=== PATIENT | female | born 1955 | race African-American/Black ===

== ENCOUNTER 2016-11-27 17:56 | Emergency (ER) | payer OTHER ==
[~2016-11-27] VITALS: Ht 160 cm; Wt 113.4 kg
--- NOTE | ~2016-11-27 | EKG ---
[place] [address] [facility] [place] [address] ELECTROCARDIOGRAM REPORT Name: SRIDEVI MENDOZA Room #: DEP [facility]#: [id number] Admission: 11/27/16 Attend Phys: Discharge: 11/27/16 Date of : 57 Report #: [id number] THIS REPORT FOR: //name// [facility] ED Test Date: 2016-11-27 Test Time: 18:03:46 Pat Name: SRIDEVI MENDOZA Department: Room: Gender: F [employer]: Vera ZAZUETA : 1955 Requested By: Ryan Naranjo Order Number: [id number] MD: Matias Sebastian Measurements Intervals Mcdonald Rate: 147 P: MS: QRS: -5 QRSD: 83 T: 135 QT: 293 QTc: 459 Interpretive Statements Atrial fibrillation Abnormal R-wave progression, late transition LVH with secondary repolarization abnormality Compared to ECG 05/01/2013 06:54:39 atrial fibrillation has replaced sinus bradycardia Electronically Signed On 11-28-2016 8:12:49 CDT by Matias Sebastian [email or web address] <ELECTRONICALLY SIGNED> By: Matias Sebastian MD, [facility] 11/28/16811 180 180 Matias Sebastian MD, [facility] /EPI
[~2016-11-27 17:56] MED LIST: BENICAR40 MG PO; EQL FLAXSEED O1 EACH PO; FUROSEMIDE 20 M20 M1 PO; HEALTHY HEART1 EAC1 PO; LOSARTAN-HCTZ1 EACH PO; MULTIVITAMINS1 EAC7 PO; NITROFURANTOIN100 MG PO; PROBIOTIC1 EAC1 PO; TOPROL XL50 MG PO; VITAMIN B COMP1 EAC7 PO; VITAMIN D1000 UNI2 PO; VITAMINC500 PO
[2016-11-27 18:34] LABS: ABSOLUTE NEUTROPHILS 3.5 thou/uL (1.4-8.2); BASOPHILS 1.2 % (0.0-2.0); EOSINOPHILS 0.9 % (0.0-3.0); HEMOGLOBIN 13.7 gm/dL (12.0-15.0); LYMPHOCYTES 40.1 % (24.0-44.0); MCHC 33.3 g/dL (28.0-37.0); MCV 87.1 fL (80.0-100.0); MONOCYTES 7.1 % (1.0-8.0); PLATELET COUNT 232 thou/uL (150-400); POLYS 50.7 % (36.0-66.0); RDW 14.5 % (10.5-14.5); WBC 6.8 thou/uL (4.0-11.0)
[2016-11-27 18:43] LABS: MANUAL DIFF NO
[2016-11-27 18:47] LABS: ANION GAP 5 mmol/L (7-16); BUN 16 mg/dL (7-18); CALCIUM 9.6 mg/dL (8.5-10.1); CHLORIDE 103 mmol/L (98-107); CO2 28 mmol/L (21-32); CREATININE 0.9 mg/dL (0.6-1.0); GLUCOSE 132 mg/dL (74-106); POTASSIUM 3.9 mmol/L (3.5-5.1); SODIUM 136 mmol/L (136-145)
[2016-11-27 18:55] LABS: TROPONIN-I < 0.04 ng/mL (<0.04-0.07)
[2016-11-27] MEDS ORDERED: LOPRESSOR25 PO (20:20)
== END 2016-11-27 20:54 | disposition home or self-care (01) ==
LOC: ER 17:56
PROVIDERS: Emergency Medicine
DX: I48.0 Paroxysmal atrial fibrillation (principal); I10 Essential (primary) hypertension; Z98.890 Other specified postprocedural states; Z88.8 Allergy status to other drugs, medicaments and biological substances